=== PATIENT | female | born 1970 | race Caucasian/White ===

== ENCOUNTER 2016-11-26 17:24 | Observation (INO) ==
--- NOTE | 2016-11-26 20:26 | Internal Med History&Physical ---
<Doug Cooley - Last Filed: 11/26/16 21:49> Date of Encounter: 11/26/16 Time of Encounter: 20:10 Assessment and Plan (1) Acute hepatitis Current visit: No Status: Acute Patient has scleral icterus found to have highly elevated liver transaminases, alkaline phosphatase, and bilirubin. Patient reports being asymptomatic. Patient also denies potential exposures for, and routes of obtaining hepatitis. Patient reports heavy alcohol consumption 2 days ago, which is not unusual for her on the weekends. Denies drug, herb medication usage. Madey's discriminant factor 11.9, no indication for corticosteroids currently MELD 18 We will evaluate for potential causes of acute hepatitis. We will obtain CT with contrast the patient abdomen/pelvis We will obtain hepatitis profile Obtain ceruplasmin, CMV, EBV, HIC, Will obtain UDS (2) DVT prophylaxis Current visit: Yes Status: Acute 5000 units heparin subcutaneous 3 times a day Internal Medicine - H&P: HPI Chief complaint: Yellowing of eyes Admitted From: Home Plans for Post Hospital Care: Home History of present illness: Ms. Cooley is a 46 year old female with no significant past medical history who presented to the [place] ED due to "yellowing of her eyes." Her coworkers noticed earlier today that she appeared to have significant yellowing of her eyes and told her that she should go to the emergency room. She states that she has felt fine and has not had any discomfort. She was found at the [place] ER to have significantly elevated bilirubin, liver transaminases, and alkaline phosphatase. She was also found to have orange colored urine that contained blood, bilirubin, and urobilinogen. The patient has had no complaints, reports only one episode earlier of nausea with vomiting (bilious, stomach contents). She denies any abdominal pain, any additional nausea, palpitations, chest pain, urinary symptoms, pain around eating or certain foods, castellano colored stools, fever/chills, recent weight loss/ gain, abnormal nighttime sweating, hematuria, or bloating. She states the only medication she is taking recently is a little bit of ibuprofen a week ago. She does report drinking occasionally during the week, but reports 5-6 drink consumption of whiskey on the weekends (last consumptions Saturday). She denies Tylenol usage, denies medications, denies any sexual encounters besides her long-term partner, denies potential work exposures, denies sick contacts. Past Med Surg Social Fam HX - Past Medical History Medical history: no medical history Psychiatric history: no psych history - Past Surgical History Surgical History: other - Social History Smoking Status: Current every day smoker Packs per day: 1.5 Smokeless Tobacco Status: No Alcohol use: occasionally, recent Drug use: none Internal Medicine - H&P: Meds No Known Home Drugs 11/26/16 [History] Allergies No Known Allergies Allergy (Verified 11/26/16 14:03) - Constitutional Constitutional: no anorexia, no chills, no fever(s), no weakness, no weight gain , no weight loss - EENT Eyes: no change in vision, no diplopia, no photophobia Nose, mouth and throat: no dysphagia, no nasal discharge, no neck pain, no sore throat - Cardiovascular Cardiovascular ROS IM: no chest pain, no diaphoresis, no dyspnea, no lightheadedness, no palpitations, no syncope - Respiratory Respiratory: no cough, no dyspnea, no wheezing, no excessive phlegm production - Gastrointestinal Gastrointestinal: as per HPI, nausea (One episode earlier), vomiting (One episode earlier), no abdominal pain, no diarrhea, no hematemesis, no hematochezia, no melena - Genitourinary Genitourinary: no change in urinary stream, no dysuria, no flank pain, no hematuria - Musculoskeletal Musculoskeletal ROS IM: no numbness, no tingling - Integumentary Integumentary IM: no pruritus, no rash, no unusual bruising - Neurological Neurological ROS: no confusion, no convulsions, no focal weakness, no numbness, no tingling, no tremor(s) - Hematologic/Lymphatic Hematologic/Lymphatic: no easy bleeding, no easy bruising - Constitutional Vitals: Temp Pulse Resp BP Pulse Ox 97.9 F 78 17 163/95 92 11/26/16 19:44 11/26/16 19:44 11/26/16 19:44 11/26/16 19:44 11/26/16 19:44 Exam: General: Cooperative, pleasant, no acute distress, alert and oriented 3, answers questions appropriately Head: Normocephalic, atraumatic Eye: Conjunctiva pink, scleral icterus present, EOMI, PERRL Neck: Supple, trachea midline, mucosa moist, poor dentition Respiratory: No accessory muscle usage, clear to auscultation bilaterally, no wheezes/rhonchi/rales appreciated Cardiovascular: Regular rate and rhythm, S1 and S2 present, no murmurs/rubs/ gallops/clicks appreciated, no JVP appreciated GI/abdominal: Nondistended, nontender, soft, normal bowel sounds, no peritoneal signs, no tenderness at McBurney's point, no Tyler's sign Extremities: No calf tenderness, noncyanotic, no pedal edema appreciated, warm, lower extremity pulses palpable and symmetrical Neurological: Alert and oriented 3, no facial droop, no focal deficits Skin: Dry, intact, normal color, no jaundice appreciated, no spider angioma identified <Sammy Ambrose - Last Filed: 11/27/16 00:08> Date of Encounter: 11/27/16 Internal Medicine - H&P: HPI History of present illness: Ms. Cooley is a 46 year old female All Systems PM: A 10-system review of systems was performed and is negative for pertinent findings except as documented above in the HPI. - Constitutional Vitals: Temp Pulse Resp BP Pulse Ox 97.9 F 78 17 163/95 92 11/26/16 19:44 11/26/16 19:44 11/26/16 19:44 11/26/16 19:44 11/26/16 19:44 Internal Med - H&P Results - Impressions ITS Impressions Abdomen/Pelvis CT 11/26/16 20:28 IMPRESSION: Minimal periportal edema, fat stranding in the prosper hepatis and pericholecystic fat stranding consistent with inflammatory change of acute hepatitis. There is no evidence of bile duct dilatation/ obstruction. The gallbladder is contracted. There are no calcified gallstones Moderate sigmoid colon diverticulosis with no evidence of diverticulitis D/ / Junito Kiser MD / Junito Kiser MD Interpreting Provider: Junito Kiser MD - Attending Attestation I examined this patient and my medical decision-making was reviewed with the FACER OPERATOR/PA/Advanced Practice Nurse/Resident Physician. I agree with the documented findings, disposition and treatment plan as described except to the extent set forth below. Follow hepatitis workup. IV fluids. D/W patient and her . Agree with Dr. Cooley.
[2016-11-26] MEDS ORDERED: Naloxone 0.4 MG/ML INJ IVP PRN (20:46)
[2016-11-26] MEDS ORDERED: Ondansetron 4 MG/2 ML VIAL IVP PRN (20:46)
[2016-11-26] MEDS: *HR* Heparin 5,000 UNIT/ML VIAL SQ SCH (21:58)
[2016-11-26] MEDS: Nicotine 14 MG PATCH.TD24 TD SCH (21:58)
[2016-11-26] MEDS: 0.9 % Sodium Chloride 1,000 ML IVC SCH (21:58)
[2016-11-26 23:00] LABS: Hepatitis A Antibody IgM Nonreactive (Nonreactive); Hepatitis C Virus Antibody Nonreactive (Nonreactive)
[2016-11-26 23:16] LABS: Hepatitis B Core IgM Reactive (Nonreactive); Hepatitis B Surface Antigen Reactive (Nonreactive)
[2016-11-26] MEDS ORDERED: *HR* LORazepam 2 MG/ML VIAL IVP PRN ×3 (23:45)
[2016-11-26 23:52] LABS: Amphetamine Screen,Urine Negative ng/mL (Cutoff=1000); Barbiturate Screen,Urine Negative ng/mL (Cutoff=200); Benzodiazepines Screen,Urine Negative ng/mL (Cutoff=200); Cannabinoid Screen,Urine Negative ng/mL (Cutoff = 50); Cocaine Screen,Urine Negative ng/mL (Cutoff= 300); Opiate Screen,Urine Negative ng/mL (Cutoff=300); Phencyclidine Screen,Urine Negative ng/mL (Cutoff=25)
[2016-11-27] MEDS: 0.9 % Sodium Chloride 1,000 ML IVC SCH ×2 (03:52→15:15)
[2016-11-27 05:29] LABS: Basophils # 0.1 K/mcL (0.0-0.2); Basophils % 1.1 %; Eosinophils # 0.1 K/mcL (0.0-0.6); Hematocrit 37.4 % (35.3-44.9); Hemoglobin 12.6 g/dL (11.5-15.4); Lymphocytes # 1.9 K/mcL (0.6-4.6); Lymphocytes % 40.7 %; Mean Corpuscular HGB Conc 33.7 g/dL (31.6-35.5); Mean Corpuscular Hemoglobin 28.5 pg (28.0-33.3); Mean Corpuscular Volume 84.6 fL (83.0-100.0); Mean Platelet Volume 10.2 fL (9.4-12.4); Monocytes # 0.7 K/mcL (0.0-1.3); Monocytes % 14.2 %; Neutrophils # 1.9 K/mcL (1.6-8.9); Platelet Count 239 K/mcL (140-400); Red Blood Count 4.42 M/mcL (3.82-4.97); Red Cell Distribution Width 17.7 % (11.5-14.5)
[2016-11-27 05:33] LABS: INR 1.1; Prothrombin Time 12.4 Seconds (9.4-12.1)
[2016-11-27 05:41] LABS: BUN/Creatinine Ratio 12 (6-26); Blood Urea Nitrogen 8 mg/dL (7-20); Calcium 8.6 mg/dL (8.6-10.8); Carbon Dioxide 20 mEq/L (19-29); Chloride 107 mEq/L (98-109); Glucose 121 mg/dL (70-99); Osmolality,Calculated 282 (280-300); Phosphorous 2.5 mg/dL (2.3-4.7); Potassium 3.9 mEq/L (3.5-4.5); Sodium 136 mEq/L (136-145); eGFR For African Americans > 60 (> 60); eGFR For Non-African Americans > 60 (> 60)
[2016-11-27 05:43] LABS: Albumin 2.7 g/dL (3.5-5.0); Albumin/Globulin Ratio 0.8 (1.1-2.2); Bilirubin,Direct 8.7 mg/dL (0.0-0.5); Bilirubin,Indirect 2.3 mg/dL (0.0-1.2); Globulin 3.4 g/dL (2.4-3.5); Total Protein 6.1 g/dL (6.0-8.3)
[2016-11-27] MEDS ORDERED: Ibuprofen 400 MG TABLET PO PRN (05:45)
[2016-11-27 05:56] LABS: Anisocytosis 1+ (Not Present); Microcytosis Present (Not Present); Reactive Lymphocytes Present (Not Present)
[2016-11-27 05:57] LABS: Platelet Estimate Normal (Normal)
[2016-11-27] MEDS: Nicotine 14 MG PATCH.TD24 TD SCH (06:26)
[2016-11-27] MEDS: *HR* Heparin 5,000 UNIT/ML VIAL SQ SCH ×3 (07:23→22:10)
[2016-11-27] MEDS: Vitamin B Complex/Vit C/Vit E 1 EACH TABLET PO SCH (08:11)
--- NOTE | 2016-11-27 12:54 | Event Note ---
Date of Encounter: 11/27/16 Time of Encounter: 12:00 Patient with acute hepatitis B with the abnormal LFTs and bilirubin of 11 INR is only 1.1 Recommendation: Full consult to follow, symptomatic treatment, follow lfts
--- NOTE | 2016-11-27 15:58 | Internal Med Progress Note ---
Date of Encounter: 11/27/16 Time of Encounter: 10:30 - Assessment and plan (1) Acute hepatitis Current Visit: No Status: Acute Assessment and plan: Abdominal pelvic CT consistent with acute hepatitis. LFTs elevated and are slowly trending down. Patient denies pain or tenderness. She is endorsing a normal appetite. GI is on board. Possible discharge tomorrow pending clinical outcomes. Bili slightly elevated from yesterday- will trend. ITS Impressions Abdomen/Pelvis CT 11/26/16 20:28 IMPRESSION: Minimal periportal edema, fat stranding in the prosper hepatis and pericholecystic fat stranding consistent with inflammatory change of acute hepatitis. There is no evidence of bile duct dilatation/ obstruction. The gallbladder is contracted. There are no calcified gallstones Moderate sigmoid colon diverticulosis with no evidence of diverticulitis D/: 11/26/2016 23:12:56 / Junito Kiser MD / Junito Kiser MD Interpreting Provider: Junito Kiser MD (2) Alcohol abuse Current Visit: Yes Status: Chronic Assessment and plan: Acute on chronic. How much and how often she drinks varies depending on who has asked her thus far in the admission. She states that she drinks heavily on the weekends and drinks a couple "tall boys" 3 nights per week. Continue CIWA scoring (3) Tobacco abuse Current Visit: Yes Status: Chronic Assessment and plan: continues to smoke 1.5PPD- declines counseling at this time. NRT. (4) DVT prophylaxis Current Visit: Yes Status: Acute Assessment and plan: Subcutaneous heparin (5) Hypertension Current Visit: Yes Status: Chronic Assessment and plan: Hypertensive upon arrival and borderline hypertensive since admission. She has not on any home medications, will start her on Amlodipine and trend - Subjective Interval history: Patient seen and examined. On examination, patient sitting upright in bed. Patient stating she is eating well. She states she had a bowel movement this morning that was normal. She denies pain at this time. - Constitutional Vitals: Temp Pulse Resp BP Pulse Ox 97.7 F 70 15 149/99 94 11/27/16 15:30 11/27/16 15:30 11/27/16 15:30 11/27/16 15:30 04/04/17 15:30 General appearance: Present: A&O X 3, pleasant, no acute distress, answers questions appropriately - Head Head exam: Present: atraumatic, normocephalic - Eye Eye exam: Present: PERRL, scleral icterus, conjuntiva pink Pupils: Present: PERRL - Neck Neck exam general surgery: Present: supple, trachea midline. Absent: lymphadenopathy - Respiratory Respiratory exam: Present: decreased breath sounds. Absent: accessory muscle use, rales, respiratory distress, rhonchi, wheezes - Cardiovascular Cardiovascular exam: Present: RRR, +S1, +S2. Absent: diastolic murmur, gallop, rubs, systolic murmur - GI/Abdominal GI/Abdominal exam: Present: distended, normal bowel sounds, soft, no peritoneal signs. Absent: tenderness - Extremities Exam Extremities exam: Present: warm, radial pulses palpable and symetrical. Absent : calf tenderness, cyanotic, pedal edema - Neurological Exam Neurological exam: Present: alert, CN II-XII intact, normal gait, oriented X3, no focal deficits, strengths equal and symetr throughout. Absent: pronater drift, facial droop, speech deficit - Skin Skin exam: Present: dry, intact, pallor (jaundiced) Internal Medicine: Result - Labs CBC & Chem 7: 11/27/16 04:48 11/27/16 04:48 Labs: Short CBC 11/27/16 Range/Units 04:48 WBC 4.6 (4.3-11.1) K/mcL Hgb 12.6 (11.5-15.4) g/dL Hct 37.4 (35.3-44.9) % Plt Count 239 (140-400) K/mcL Neutrophils # 1.9 (1.6-8.9) K/mcL BMP 11/27/16 04:48 Sodium 136 Potassium 3.9 Chloride 107 Carbon Dioxide 20 BUN 8 Creatinine 0.65 Glucose 121 H Calcium 8.6 Liver Function 11/27/16 Range/Units 04:48 Total Bilirubin 11.0 H (0.2-1.2) mg/dL Direct Bilirubin 8.7 H (0.0-0.5) mg/dL AST 1112 H (5-34) Units/L ALT 1500 H (0-55) Units/L Alkaline Phosphatase 362 H (38-126) Units/L Albumin 2.7 L (3.5-5.0) g/dL - ABG Interpretation ABG results: PT/INR, D-dimer PT 12.4 Seconds (9.4-12.1) H 11/27/16 04:48 - Impressions Impressions Abdomen/Pelvis CT 11/26/16 20:28 IMPRESSION: Minimal periportal edema, fat stranding in the prosper hepatis and pericholecystic fat stranding consistent with inflammatory change of acute hepatitis. There is no evidence of bile duct dilatation/ obstruction. The gallbladder is contracted. There are no calcified gallstones Moderate sigmoid colon diverticulosis with no evidence of diverticulitis D/ / Junito Kiser MD / Junito Kiser MD Interpreting Provider: Junito Kiser MD Consult Discharge Plan - Plan Referrals: NO,PCP [Primary Care Provider] -
[2016-11-27] MEDS: amLODIPine 5 MG TABLET PO SCH (16:49)
[2016-11-28] MEDS: 0.9 % Sodium Chloride 1,000 ML IVC SCH (01:27)
[2016-11-28] MEDS: *HR* Heparin 5,000 UNIT/ML VIAL SQ SCH (06:32)
[2016-11-28 06:40] LABS: Alanine Aminotransferase 1575 Units/L (0-55); Albumin 2.7 g/dL (3.5-5.0); Albumin/Globulin Ratio 0.8 (1.1-2.2); Alkaline Phosphatase 312 Units/L (38-126); Aspartate Amino Transferase 1326 Units/L (5-34); BUN/Creatinine Ratio 9 (6-26); Bilirubin,Indirect 2.7 mg/dL (0.0-1.2); Bilirubin,Total 12.6 mg/dL (0.2-1.2); Blood Urea Nitrogen 6 mg/dL (7-20); Calcium 8.5 mg/dL (8.6-10.8); Carbon Dioxide 21 mEq/L (19-29); Chloride 107 mEq/L (98-109); Globulin 3.3 g/dL (2.4-3.5); Glucose 84 mg/dL (70-99); Osmolality,Calculated 283 (280-300); Sodium 138 mEq/L (136-145); eGFR For African Americans > 60 (> 60); eGFR For Non-African Americans > 60 (> 60)
[2016-11-28 06:41] LABS: Bilirubin,Direct 9.9 mg/dL (0.0-0.5)
[2016-11-28] MEDS: Nicotine 14 MG PATCH.TD24 TD SCH (08:08)
[2016-11-28] MEDS: Vitamin B Complex/Vit C/Vit E 1 EACH TABLET PO SCH (08:08)
[2016-11-28] MEDS: amLODIPine 5 MG TABLET PO SCH (08:08)
[2016-11-28 11:29] VITALS: BP 146/94
--- NOTE | 2016-11-28 12:36 | Gastroenterology Consult Note ---
<AgudeloRemy guido Arthur - Last Filed: 11/28/16 12:33> Date of Encounter: 11/28/16 Time of Encounter: 11:10 - Assessment and plan (1) Acute hepatitis B Current Visit: Yes Status: Acute Assessment and plan: TB 12.6, AST 1326, and ALT 1575 which is slightly worse than yesterday (TB 11, AST 1112, ALT 1500) INR is normal at 1.1. Continue symptomatic treatment. Ok to discharge patient home. Will have pt follow up in office in the next 1-2 weeks, check hepatic panel and INR next week. - Time Spent With Patient Total time spent is greater than 50% in coordination of care (as documented) at patient's floor/unit and/or counseling patient: GI History of Present Illness - Data of Consult Patient: new to practice Consult date: 11/28/16 Requesting Physician: Tatiana Underwood - Consult Narrative Reason for consult: hepatitis B History of present illness: Ms. Cooley is a 46 year old female with no significant PMHx who presentd to the ED with yellowing of her eyes. She has no complaints. She denies fever, chills, chest pain, abdominal pain, nausea, vomiting, melena, or hematochezia. She states the only medication she is taking recently is a little bit of ibuprofen a week ago. She does report drinking occasionally during the week, but reports 5 -6 drink consumption of whiskey on the weekends (last consumptions Saturday). She denies Tylenol usage, denies medications, denies any sexual encounters besides her long-term partner, denies potential work exposures, denies sick contacts. 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 Procedures: None NSAIDs: Ibuprofen Anticoagulation: None Past Med Surg Social Fam HX - Past Medical History Medical history: no medical history Psychiatric history: no psych history - Past Surgical History Surgical History: other - Social History Smoking Status: Current every day smoker Packs per day: 1.5 Smokeless Tobacco Status: No Alcohol use: occasionally, recent Drug use: none - Gastrointestinal Gastrointestinal: Present: as per HPI - Constitutional Constitutional: as per HPI - EENT Eyes: as per HPI Ears: Present: as per HPI Nose, mouth and throat: Present: as per HPI - Cardiovascular Cardiovascular ROS: Present: as per HPI - Respiratory Respiratory IM: Present: as per HPI - Genitourinary Genitourinary: Absent: change in color, Urinary frequency - Neurological ROS Neurological GI: Present: as per HPI - Hematologic/Lymphatic Hematologic/Lymphatic pediatric: Present: as per HPI - Musculoskeletal Musculoskeletal ROS GI: Present: as per HPI - Integumentary Integumentary GI: Present: as per HPI - Psychiatric ROS Psychiatric GI: Present: as per HPI - Endocrine Endocrine IM: Present: as per HPI - Constitutional Vitals: Temp Pulse Resp BP Pulse Ox 97.8 F 84 16 146/94 96 11/28/16 07:24 11/28/16 11:26 11/28/16 11:26 11/28/16 11:26 11/28/16 11:26 General appearance: Present: cooperative, A&O X 3, no acute distress, answers questions appropriately - Head Head exam: Present: atraumatic, normocephalic - Eye Eye exam: Present: scleral icterus - ENT ENT exam: Present: mucous membranes moist - Neck Neck exam general surgery: Present: normal inspection, trachea midline - Respiratory Respiratory exam: Present: CTAB. Absent: rales, rhonchi - Cardiovascular Cardiovascular exam: Present: RRR, +S1, +S2 - GI/Abdominal GI/Abdominal exam: Present: soft, no peritoneal signs. Absent: distended, firm , guarding, tenderness - Rectal Rectal exam: Present: deferred - Extremities Exam Extremities exam: Present: warm - Neurological Exam Neurological exam: Present: no focal deficits - Psychiatric Psychiatric exam: Present: normal affect, normal mood - Skin Skin exam: Present: dry, intact, warm. Absent: normal color Additional comments: Jaundiced Results - Labs CBC & Chem 7: 11/27/16 04:48 11/28/16 04:58 Labs: Last Result Calcium 8.5 mg/dL (8.6-10.8) L 11/28/16 04:58 Urine Opiates Screen Negative ng/mL (Iabniz=[id number]) 11/26/16 23:40 Entire Visit Hgb 12.6 g/dL (11.5-15.4) 11/27/16 04:48 Hct 37.4 % (35.3-44.9) 11/27/16 04:48 PT 12.4 Seconds (9.4-12.1) H 11/27/16 04:48 Total Bilirubin 12.6 mg/dL (0.2-1.2) H 11/28/16 04:58 AST 1326 Units/L (5-34) H 11/28/16 04:58 ALT 1575 Units/L (0-55) H 11/28/16 04:58 - ABG ABG results: PT/INR, D-dimer PT 12.4 Seconds (9.4-12.1) H 11/27/16 04:48 Consult Discharge Plan - Plan Instructions: Hand Hygiene (DC), Viral Hepatitis B, Mirror Machine Feeder (GEN) Additional Instructions: Follow-up with GI in 1-2 weeks, follow-up with new primary care provider as scheduled Referrals: NO,PCP [Primary Care Provider] - Ela Hurt MD [Partnered Physician] - Prescriptions: Amlodipine [Norvasc] 10 mg PO DAILY #60 tablet Omeprazole [PriLOSEC] 20 mg PO DAILY@0630 #30 capsule. Vitamin B Complex/Vit C/Vit E [Stresstab] 1 each PO DAILY #30 tablet <Ela Hurt - Last Filed: 11/28/16 14:46> Date of Encounter: 11/28/16 Time of Encounter: 12:00 - Time Spent With Patient Total time spent is greater than 50% in coordination of care (as documented) at patient's floor/unit and/or counseling patient: GI History of Present Illness - Data of Consult Requesting Physician: Tatiana Underwood - Consult Narrative History of present illness: Ms. Cooley is a 46 year old female - Constitutional Vitals: Temp Pulse Resp BP Pulse Ox 97.8 F 84 16 146/94 96 11/28/16 07:24 11/28/16 11:26 11/28/16 11:26 11/28/16 11:26 11/28/16 11:26 Results - Labs CBC & Chem 7: 11/27/16 04:48 11/28/16 04:58 Labs: Last Result Calcium 8.5 mg/dL (8.6-10.8) L 11/28/16 04:58 Urine Opiates Screen Negative ng/mL (Yjfloi=[id number]) 11/26/16 23:40 Entire Visit Hgb 12.6 g/dL (11.5-15.4) 11/27/16 04:48 Hct 37.4 % (35.3-44.9) 11/27/16 04:48 PT 12.4 Seconds (9.4-12.1) H 11/27/16 04:48 Total Bilirubin 12.6 mg/dL (0.2-1.2) H 11/28/16 04:58 AST 1326 Units/L (5-34) H 11/28/16 04:58 ALT 1575 Units/L (0-55) H 11/28/16 04:58 - ABG ABG results: PT/INR, D-dimer PT 12.4 Seconds (9.4-12.1) H 11/27/16 04:48 - Attending Attestation I examined this patient and my medical decision-making was reviewed with the SENIOR COURT OFFICE ASSISTANT/PA/Advanced Practice Nurse/Resident Physician. I agree with the documented findings, disposition and treatment plan as described except to the extent set forth below. Pt with acute hepatitis B clinically asymptomatic other than the jaundice. INR is 1.1. Can be discharge from GI point of view. LFTs next week and follow-up with GI next week.
--- NOTE | 2016-11-28 13:42 | Discharge Summary ---
Date of Encounter: 11/28/16 Time of Encounter: 13:00 - Discharge Diagnosis (1) Acute hepatitis Priority: Primary Status: Acute Comments: Abdominal pelvic CT consistent with acute hepatitis. LFTs remained stable throughout this admut this admission. She was also able to tolerate a regular diet while admitted ITS Impressions Abdomen/Pelvis CT 11/26/16 20:28 IMPRESSION: Minimal periportal edema, fat stranding in the prosper hepatis and pericholecystic fat stranding consistent with inflammatory change of acute hepatitis. There is no evidence of bile duct dilatation/ obstruction. The gallbladder is contracted. There are no calcified gallstones Moderate sigmoid colon diverticulosis with no evidence of diverticulitis D/: 11/26/2016 23:12:56 / Junito Kiser MD / Junito Kiser MD Interpreting Provider: Junito Kiser MD (2) Alcohol abuse Priority: Secondary Status: Chronic Comments: Acute on chronic. How much and how often she drinks varies depending on who has asked her during her admission. She states that she drinks heavily on the weekends and drinks a couple "tall boys" 3 nights per week. She did not have any CIWA scoring that necessitated medication during this admission. no signs of acute withdrawal. (3) Tobacco abuse Priority: Secondary Status: Chronic Comments: continues to smoke 1.5PPD- declined counseling while admitting. (4) DVT prophylaxis Priority: Primary Status: Acute Comments: Subcutaneous heparin while admitted (5) Hypertension Priority: Secondary Status: Chronic Comments: Hypertensive upon arrival and borderline hypertensive since admission. She has not on any home medications, she was started on Amlodipine and her blood pressure improved- recommend daily BP checks at home, keeping a log, and following up outpatient. Qualifiers: Hypertension type: essential hypertension Qualified Code(s): I10 - Essential (primary) hypertension - Discharge Medications Prescriptions: Amlodipine [Norvasc] 10 mg PO DAILY #60 tablet Omeprazole [PriLOSEC] 20 mg PO DAILY@0630 #30 capsule. Vitamin B Complex/Vit C/Vit E [Stresstab] 1 each PO DAILY #30 tablet Home Medications: Amlodipine [Norvasc] 10 mg PO DAILY #60 tablet 11/28/16 [Rx] Omeprazole [PriLOSEC] 20 mg PO DAILY@0630 #30 capsule.dr 11/28/16 [Rx] Vitamin B Complex/Vit C/Vit E [Stresstab] 1 each PO DAILY #30 tablet 11/28/16 [ Rx] Allergies/Adverse Reactions: Allergies No Known Allergies Allergy (Verified 11/27/16 11:27) Procedures/tests Complete & Pending: Procedures Performed prior 72 hours Category Date Time Status CT abd pelvis w iv no oral [CT] Routine Cat Scan 11/26/16 20:28 Completed Date of admission: 11/26/16 19:06 Primary care physician: PCP NO Consults: 11/27/16 09:01 Consult to Gastroenterology [CONS] Routine Consulting Provider: Gastroenterology Ariella Reason for Consult: acute hepatitis Time Notified: 09:01 Call Completed: Yes Discharging clinician: Tatiana Livingston Anticipated date of discharge: 11/28/16 - Patient Status Disposition: Home, Self-Care Condition: Good Functional capacity at discharge: independent ambulation Overall status at discharge: patient is back to baseline - Discharge Instructions Instructions: Hand Hygiene (DC), Viral Hepatitis B, Professor Of Practice (GEN) Follow Up With: NO,PCP [Primary Care Provider] - Ela Hurt MD [Partnered Physician] - Additional Instructions: Follow-up with GI in 1-2 weeks, follow-up with new primary care provider as scheduled - Diet and Activity Activity: increase activity as tolerated Diet: regular diet Hospital course: Ms. Cooley is a 46 year old female with only past medical history of alcohol and tobacco abuse. She presented to [facility] emergency department after coworkers have noticed that she had significant yellowing of her eyes. While at [facility], she was noted to have markedly elevated bilirubin and LFT's. Her urine also was orange in color and contained blood, bilirubin and urobilinogen. Patient denied abdominal pain or changes to her appetite. Abdominal pelvic CT consistent with acute hepatitis. She was admitted to the hospitalist service for further evaluation and management. She was admitted and observed over the course of 3 days and remained stable. She was positive for hepatitis B. GI was brought on board and cleared her for outpatient follow- up within 1-2 weeks after discharge. Tox screen negative. 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 During this admission, she was on the CIWA protocol but did not score or necessitate medications. She had no signs of active alcohol withdrawal. She was also noted to be hypertensive upon arrival and was started on amlodipine during this admission and recommended to check her blood pressure daily at home and follow up outpatient. Patient continued to deny pain and continued to tolerate a regular diet throughout this admission. She was discharged home in stable condition with close outpatient follow-up recommended. She was also educated in depth regarding her hepatitis B diagnosis. ITS Impressions Abdomen/Pelvis CT 11/26/16 20:28 IMPRESSION: Minimal periportal edema, fat stranding in the prosper hepatis and pericholecystic fat stranding consistent with inflammatory change of acute hepatitis. There is no evidence of bile duct dilatation/ obstruction. The gallbladder is contracted. There are no calcified gallstones Moderate sigmoid colon diverticulosis with no evidence of diverticulitis D/: 11/26/2016 23:12:56 / Junito Kiser MD / Junito Kiser MD Interpreting Provider: Junito Kiser MD - Time Spent with Patient Total time spent providing and/or coordinating discharge services: - Constitutional Vitals: Temp Pulse Resp BP Pulse Ox 97.8 F 84 16 146/94 96 11/28/16 07:24 11/28/16 11:26 11/28/16 11:26 11/28/16 11:26 11/28/16 11:26 General appearance: Present: A&O X 3, pleasant, no acute distress, answers questions appropriately - Head Head exam: Present: atraumatic, normocephalic - Eye Eye exam: Present: PERRL, conjuntiva pink, sclera anicteric Pupils: Present: PERRL - Neck Neck exam general surgery: Present: supple, trachea midline. Absent: lymphadenopathy - Respiratory Respiratory exam: Present: CTAB. Absent: accessory muscle use, rales, respiratory distress, rhonchi, wheezes - Cardiovascular Cardiovascular exam: Present: RRR, +S1, +S2. Absent: diastolic murmur, gallop, rubs, systolic murmur - GI/Abdominal GI/Abdominal exam: Present: normal bowel sounds, soft, no peritoneal signs. Absent: distended, tenderness - Extremities Exam Extremities exam: Present: warm, radial pulses palpable and symetrical. Absent : calf tenderness, cyanotic, pedal edema - Neurological Exam Neurological exam: Present: alert, CN II-XII intact, normal gait, oriented X3, no focal deficits, strengths equal and symetr throughout. Absent: pronater drift, facial droop, speech deficit - Skin Skin exam: Present: dry, intact, normal color, warm
[2016-11-29 07:12] LABS: EBV Ab(Viral Capsid Ag)VCA-IGG >750.0 U/mL (0.0-21.9); EBV Ab(Viral Capsid Ag)VCA-IgM 10.7 U/mL (0.0-43.9)
[2016-11-30 07:27] LABS: Cytomegalovirus DNA (PCR) NOT DETECTED
== END 2016-11-28 15:07 | disposition home or self-care (01) ==
LOC: 3BNU
PROVIDERS: ADMIT Nurse Practitioner Family; ATTEND Nurse Practitioner Family